=== PATIENT | female | born 1955 | race Caucasian/White ===

== ENCOUNTER 2016-12-15 11:07 | Inpatient (IN) | payer OTHER ==
[2016-12-15 11:45] VITALS: BMI 38.2
--- NOTE | 2016-12-15 15:36 | HP ---
COWS - Scale Resting Pulse: 1= MO 81-100 Sweatin=Flushed/Facial Moisture Restless Observation: 3= Extraneous Movement Pupil Size: 2= Moderately Dilated Bone or Joint Aches: 2= Severe Diffuse Aches Runny Nose/ Eye Tearin= Runny Nose/Eyes GI Upset > 30mins: 2= Nausea/Diarrhea Tremor Observation: 2= Slight Tremor Visible Yawning Observation: 1= 1-2x During Session Anxiety or Irritability: 2=Irritable/Anxious Goose Flesh Skin: 3=Piloerection COWS Score: 22 Admission ROS S - HPI Chief Complaint: Withdrawal sx Allergies/Adverse Reactions: Allergies Allergy/AdvReac Type Severity Reaction Status Date / Time No Known Allergies Allergy Unverified 12/15/16 14:20 History of Present Illness: 61 y/o woman with a long hx. of drug dependence is admitted for detox.Pt. was in [facility] for 20 yrs., she recently detoxed. Exam Limitations: No Limitations - Ebola screening Have you traveled outside of the country in the last 21 days: No Have you had contact with anyone from an Ebola affected area: No Have you been sick,other than usual withdrawal symptoms: No Do you have a fever: No - Review of Systems Constitutional: Diaphoresis EENT: reports: Nose Congestion Respiratory: reports: Shortness of Breath (copd) Cardiac: reports: No Symptoms Reported GI: reports: Nausea, Abdominal cramping : reports: No Symptoms Reported Musculoskeletal: reports: Back Pain, Joint Pain, Muscle Pain Integumentary: reports: Sweating Neuro: reports: Tremors Endocrine: reports: No Symptoms Reported Hematology: reports: No Symptoms Reported Psychiatric: reports: No Sypmtoms Reported Other Systems: Reviewed and Negative Patient History - Patient Medical History Hx Anemia: No Hx Asthma: No Hx Chronic Obstructive Pulmonary Disease (COPD): Yes Hx Cancer: No Hx Cardiac Disorders: No Hx Congestive Heart Failure: No Hx Hypertension: Yes Hx Hypercholesterolemia: Yes Hx Pacemaker: No HX Cerebrovascular Accident: No Hx Seizures: No Hx Dementia: No Hx Diabetes: No Hx Gastrointestinal Disorders: No Hx Liver Disease: No Hx Genitourinary Disorders: No Hx Sexually Transmitted Disorders: No Hx Renal Disease (ESRD): No Hx Thyroid Disease: No Hx Human Immunodeficiency Virus (HIV): No Hx Hepatitis C: No Hx Depression: Yes Hx Suicide Attempt: No Hx Bipolar Disorder: No Hx Schizophrenia: No - Patient Surgical History Past Surgical History: Yes Hx Orthopedic Surgery: Yes (rt. foot 2014) Other Surgical History: rt. carpal tunnel left hand 2011 Anesthesia Reaction: No - PPD History Previous Implant?: Yes Documented Results: Negative w/o proof Implanted On Prior [facility] Admission?: No Results: 0 mm PPD to be Administered?: Yes - Reproductive History Patient is a Female of Child Bearing Age (11 -55 yrs old): No Patient : No - Smoking Cessation Smoking history: Current every day smoker Have you smoked in the past 12 months: Yes Aproximately how many cigarettes per day: 30 Hx Chewing Tobacco Use: No Initiated information on smoking cessation: Yes 'Breaking Loose' booklet given: 12/15/16 - Substance & Tx. History Hx Alcohol Use: No Hx Substance Use: Yes Substance Use Type: Heroin, Opiates Hx Substance Use Treatment: Yes ([facility]) - Substances Abused Heroin Route: Inhalation Frequency: Daily Amount used: 5 bags Age of first use: 32 Date of Last Use: 12/15/16 Family Disease History - Family Disease History Family Disease History: Heart Disease: Father (HTN), Mother (HTN), Brother (HTN) Admission Physical Exam S - Vital Signs Vital Signs: Vital Signs - 24 hr 12/15/16 11:43 Temperature 97.5 F L Pulse Rate 91 H Respiratory 18 Rate Blood Pressure 121/105 - Physical General Appearance: Yes: Obese, Sweating, Anxious HEENTM: Yes: Nasal Congestion, Rhinorrhea Respiratory: Yes: Chest Non-Tender, Lungs Clear, Normal Breath Sounds Neck: Yes: Supple Breast: Yes: Breast Exam Deferred Cardiology: Yes: Regular Rhythm, Regular Rate, S1, S2 Abdominal: Yes: Normal Bowel Sounds, Non Tender, Soft Genitourinary: Yes: Within Normal Limits Back: Yes: Within Normal Limits Musculoskeletal: Yes: Within Normal Limits Extremities: Yes: Tremors Neurological: Yes: Fully Oriented, Alert Integumentary: Yes: Diaphoresis Lymphatic: Yes: Within Normal Limits - Diagnostic (1) COPD (chronic obstructive pulmonary disease) Current Visit: Yes Status: Acute Qualifiers: COPD type: emphysema Emphysema type: other Qualified Code(s): J43.8 - Other emphysema (2) GERD (gastroesophageal reflux disease) Current Visit: Yes Status: Acute Qualifiers: Esophagitis presence: without esophagitis Qualified Code(s): K21.9 - Gastro-esophageal reflux disease without esophagitis (3) HTN (hypertension) Current Visit: Yes Status: Acute Qualifiers: Hypertension type: essential hypertension Qualified Code(s): I10 - Essential (primary) hypertension (4) Opioid dependence with withdrawal Current Visit: Yes Status: Acute (5) Obesities, morbid Current Visit: Yes Status: Acute Qualifiers: Obesity type: due to excess calories Qualified Code(s): E66.01 - Morbid (severe) obesity due to excess calories Cleared for Admission [facility] - Detox or Rehab [facility] Level of Care: Medically Managed Detox Regimen/Protocol: Methadone [facility] Breath Alcohol Content Breath Alcohol Content: 0 Urine Pregancy Test - Result Urine Test Results: Negative- NO Line Present Urine Drug Screen - Results Drug Screen Negative: No Urine Drug Screen Results: OPI-Opiates, MTD-Methadone, TCA-Tricyclic Antidepress , OXY-Oxycodone
[2016-12-15] MEDS ORDERED: IBUPROFEN 400 MG TABLET (FP) PO PRN (15:40)
[2016-12-15] MEDS ORDERED: LOPERAMIDE HCL 2 MG CAPSULE PO PRN (15:40)
[2016-12-15] MEDS ORDERED: MAG HYDROX/AL HYDROX/SIMETH 30 ML UNIT-DOSE CUP PO PRN (15:40)
[2016-12-15] MEDS ORDERED: diphenhydrAMINE HCL 50 MG CAPSULE PO PRN (15:40)
[2016-12-15] MEDS ORDERED: MENTHOL/PHENOL 1 EACH UD MM PRN (15:40)
[2016-12-15] MEDS ORDERED: P-EPHED 60MG/TRIPROLIDI 2.5MG TABLET PO PRN (15:40)
[2016-12-15] MEDS ORDERED: METHADONE HCL 10 MG TABLET (FOR DETOX USE ONLY) PO ONE ×2 (15:40→23:00)
[2016-12-15] MEDS ORDERED: MAGNESIUM CITRATE 300 ML BOTTLE PO PRN (15:40)
[2016-12-15] MEDS ORDERED: guaiFENesin/D-METHORPHAN HB 10 ML UNIT-DOSE CUPS PO PRN (15:40)
[2016-12-15] MEDS ORDERED: ACETAMINOPHEN 325 MG TABLET (FP) PO PRN (15:40)
[2016-12-15] MEDS ORDERED: ALBUTEROL SO4 6.7 GM HFA INHALER IH PRN (15:45)
[2016-12-15] MEDS: ASPIRIN 81 MG CHEWABLE TABLETS PO SCH (16:43)
[2016-12-15] MEDS: NICOTINE 21 MG/24 HOURS TOPICAL PATCH TD SCH (16:44)
[2016-12-15] MEDS: PANTOPRAZOLE 40 MG TABLET (FP) PO SCH (16:44)
[2016-12-15] MEDS: ENALAPRIL MALEATE 5 MG TABLET (FP) PO SCH (16:45)
[2016-12-15] MEDS: diazePAM 5 MG TABLET PO PRN ×2 (16:45→22:21)
[2016-12-15] MEDS: NICOTINE POLACRILEX 4 MG GUM BC PRN ×2 (19:23→22:24)
[2016-12-15 20:04] LABS: URINE APPEARANCE CLEAR; URINE BILIRUBIN NEGATIVE (NEGATIVE); URINE BLOOD NEGATIVE (NEGATIVE); URINE COLOR LTYELLOW; URINE GLUCOSE (UA) NEGATIVE (NEGATIVE); URINE KETONE NEGATIVE (NEGATIVE); URINE LEUK ESTERASE NEGATIVE (NEGATIVE); URINE NITRITE NEGATIVE (NEGATIVE); URINE PROTEIN NEGATIVE (NEGATIVE); URINE UROBILINOGEN NEGATIVE E.U./dl (0.2-1.0)
[2016-12-15] MEDS: GABAPENTIN 300 MG CAPSULE (FP) PO SCH (22:21)
[2016-12-15] MEDS: ATORVASTATIN CA 20 MG TABLET (FP) PO SCH (22:21)
[2016-12-15] MEDS: ACLIDINIUM BROMIDE 400 MCG/INH AERO.POWD IH SCH (22:21)
[2016-12-15] MEDS: THIAMINE HCL 100 MG TABLET (FP) PO SCH (22:21)
[2016-12-16] MEDS: diazePAM 5 MG TABLET PO PRN ×3 (03:34→22:29)
--- NOTE | 2016-12-16 09:04 | CONSULT ---
[facility] Psychiatric Consult - Data Date of interview: 12/16/16 Admission source: [facility] Identifying data: This is 61 years opld female with nop psycbhiatric hospitalization history [id number] with : Opioids and Nicotine Substance Abuse History: - Smoking Cessation. Smoking history: Current every day smoker. Have you smoked in the past 12 months: Yes. Aproximately how many cigarettes per day: 30. Hx Chewing Tobacco Use: No. Initiated information on smoking cessation: Yes. 'Breaking Loose' booklet given: 12/15/16. - Substance & Tx. History. Hx Alcohol Use: No. Hx Substance Use: Yes. Substance Use Type : Heroin, Opiates. Hx Substance Use Treatment: Yes (OTP). - Substances Abused. Heroin. Route: Inhalation. Frequency: Daily. Amount used: 5 bags. Age of first use: 32. Date of Last Use: 12/15/16 Medical History: COPD, GERD, htn, Obesity Psychiatric History: Patient reprotsd history of anxiety and insomnia,m reports taking prior to admission: Ambien 10mg po qhs. Gabapentin 300mg p qhs Physical/Sexual Abuse/Trauma History: Denies Additional Comment: Ambien 10mg po qhs. Gabapentin 300mg p qhs Mental Status Exam - Mental Status Exam Alert and Oriented to: Person Cognitive Function: Fair Patient Appearance: Unkempt Mood: Sad Affect: Flat Patient Behavior: Sedated Speech Pattern: Delayed Voice Loudness: Mildly Soft/Quiet Thought Process: Circumstantial Thought Disorder: Being Controlled Hallucinations: Denies Suicidal Ideation: Denies Homicidal Ideation: Denies Insight/Judgement: Fair Sleep: Difficulty falling asleep Appetite: Weight gain Muscle strength/Tone: Mild Hypotonicity Gait/Station: Shuffling Additional Comments: Ambien 10mg po qhs. Gabapentin 300mg p qhs Psychiatric Findings - Problem List ([place] 1, 2,3) (1) Opioid dependence with withdrawal Current Visit: Yes Status: Acute (2) Nicotine dependence Current Visit: Yes Status: Acute (3) Drug-induced mood disorder Current Visit: Yes Status: Acute - Initial Treatment Plan Initial Treatment Plan: Ambien 10mg po qhs. Gabapentin 300mg p qhs
[2016-12-16] MEDS ORDERED: METHADONE HCL 10 MG TABLET (FOR DETOX USE ONLY) PO ONE (10:00)
[2016-12-16 10:06] LABS: MCH 28.3 pg (25.7-33.7); MCHC 31.6 g/dl (32.0-36.0); MEAN CELL VOLUME 89.5 fl (80-96); MEAN PLT VOLUME 9.9 fl (7.5-11.1); PLATELET COUNT 142 K/MM3 (134-434); RDW 15.7 % (11.6-15.6); WHITE BLOOD COUNT 8.4 K/mm3 (4.0-10.0)
[2016-12-16 10:41] LABS: ALBUMIN 3.6 g/dl (3.4-5.0); BILIRUBIN,TOTAL 0.4 mg/dL (0.2-1.0); CALCIUM 8.9 mg/dL (8.5-10.1); COCKROFT - GAULT 85.17; CREATININE 1.1 mg/dL (0.55-1.02); TOT PROT 6.7 g/dl (6.4-8.2)
[2016-12-16] MEDS: PANTOPRAZOLE 40 MG TABLET (FP) PO SCH (10:46)
[2016-12-16] MEDS: PRENATAL VITAMINS W/ FOLIC ACID TABLET (FP) PO SCH (10:46)
[2016-12-16] MEDS: ASPIRIN 81 MG CHEWABLE TABLETS PO SCH (10:46)
[2016-12-16] MEDS: NICOTINE 21 MG/24 HOURS TOPICAL PATCH TD SCH (10:47)
--- NOTE | 2016-12-16 11:33 | EKG ---
Test Reason : Blood Pressure : / mmHG Vent. Rate : 071 BPM Atrial Rate : 071 BPM P-R Int : 172 ms QRS Dur : 082 ms QT Int : 378 ms P-R-T Axes : 070 030 046 degrees QTc Int : 410 ms NORMAL SINUS RHYTHM NORMAL ECG NO PREVIOUS ECGS AVAILABLE Confirmed by DEISY RIVER MD ([id number]) on 12/16/2016 11:33:00 AM Referred By: Confirmed By:DEISY RIVER MD
--- NOTE | 2016-12-16 12:17 | PN ---
S COWS - Scale Resting Pulse: 1= RI 81-100 Sweatin=Flushed/Facial Moisture Restless Observation: 1= Difficult to Sit Still Pupil Size: 1= Pupils >than Normal Bone or Joint Aches: 2= Severe Diffuse Aches Runny Nose/ Eye Tearin= Nasal Congestion GI Upset > 30mins: 1= Stomach Cramp Tremor Observation of Outstretched Hands: 1= Tremor [place], Not Seen Yawning Observation: 0= None Anxiety or Irritability: 2=Irritable/Anxious Goose Flesh Skin: 0=Smooth Skin COWS Score: 12 S Progress Note (SOAP) Subjective: interrupted sleep, sweats achy Objective: 12/16/16 12:15 Vital Signs Temperature 98.2 F 12/16/16 09:51 Pulse Rate 79 12/16/16 09:51 Respiratory Rate 16 12/16/16 09:51 Blood Pressure 108/69 12/16/16 09:51 O2 Sat by Pulse Oximetry (%) Laboratory Tests 12/15/16 12/16/16 12/16/16 19:53 08:00 08:00 WBC 8.4 RBC 5.43 H Hgb 15.4 H Hct 48.6 H MCV 89.5 MCHC 31.6 L RDW 15.7 H Plt Count 142 D MPV 9.9 Sodium 143 Potassium 4.2 Chloride 103 Carbon Dioxide 28 Anion Gap 12 BUN 20 H Creatinine 1.1 H Creat Clearance w eGFR 50.84 Random Glucose 100 D Calcium 8.9 Total Bilirubin 0.4 AST 14 L ALT 28 D Alkaline Phosphatase 110 Total Protein 6.7 Albumin 3.6 Urine Color Ltyellow Urine Appearance Clear Urine pH 6.0 Ur Specific [place] 1.014 Urine Protein Negative Urine Glucose (UA) Negative Urine Ketones Negative Urine Blood Negative Urine Nitrite Negative Urine Bilirubin Negative Urine Urobilinogen Negative Ur Leukocyte Esterase Negative RPR Titer 12/16/16 08:00 WBC RBC Hgb Hct MCV MCHC RDW Plt Count MPV Sodium Potassium Chloride Carbon Dioxide Anion Gap BUN Creatinine Creat Clearance w eGFR Random Glucose Calcium Total Bilirubin AST ALT Alkaline Phosphatase Total Protein Albumin Urine Color Urine Appearance Urine pH Ur Specific [place] Urine Protein Urine Glucose (UA) Urine Ketones Urine Blood Urine Nitrite Urine Bilirubin Urine Urobilinogen Ur Leukocyte Esterase RPR Titer Nonreactive pt aox3 in nad ambulating Assessment: 04/10/17 12:16 withdrawal sx's Plan: cont, detox increase fluids
[2016-12-16] MEDS: ENALAPRIL MALEATE 5 MG TABLET (FP) PO SCH (12:19)
[2016-12-16] MEDS: ACLIDINIUM BROMIDE 400 MCG/INH AERO.POWD IH SCH ×2 (12:19→22:30)
[2016-12-16] MEDS ORDERED: GABAPENTIN 300 MG CAPSULE (FP) PO SCH (22:00)
[2016-12-16] MEDS: THIAMINE HCL 100 MG TABLET (FP) PO SCH (22:29)
[2016-12-16] MEDS: GABAPENTIN 300 MG CAPSULE (FP) PO SCH (22:29)
[2016-12-16] MEDS: ATORVASTATIN CA 20 MG TABLET (FP) PO SCH (22:29)
[2016-12-16] MEDS: ZOLPIDEM TARTRATE 10 MG TABLET (PARK CARE ONLY) PO PRN (22:29)
[2016-12-17] MEDS ORDERED: METHADONE HCL 5 MG TABLET (FOR DETOX USE ONLY) PO ONE (10:00)
[2016-12-17] MEDS: ASPIRIN 81 MG CHEWABLE TABLETS PO SCH (10:39)
[2016-12-17] MEDS: NICOTINE 21 MG/24 HOURS TOPICAL PATCH TD SCH (10:39)
[2016-12-17] MEDS: PRENATAL VITAMINS W/ FOLIC ACID TABLET (FP) PO SCH (10:39)
[2016-12-17] MEDS: MAGNESIUM HYDROX 2400MG/30ML ORAL SUSPENSION 30 ML CUP PO PRN (10:40)
[2016-12-17] MEDS: PANTOPRAZOLE 40 MG TABLET (FP) PO SCH (10:40)
[2016-12-17] MEDS: ACLIDINIUM BROMIDE 400 MCG/INH AERO.POWD IH SCH ×2 (10:40→22:09)
[2016-12-17] MEDS: ENALAPRIL MALEATE 5 MG TABLET (FP) PO SCH (10:40)
--- NOTE | 2016-12-17 11:03 | PN ---
S CIWA - CIWA Score Nausea/Vomitin Muscle Tremors: 2 BHS COWS - Scale Resting Pulse: 1= SD 81-100 Sweatin= Chills/Flushing Restless Observation: 1= Difficult to Sit Still Pupil Size: 1= Pupils >than Normal Bone or Joint Aches: 1= Mild Discomfort Runny Nose/ Eye Tearin= Nasal Congestion GI Upset > 30mins: 1= Stomach Cramp Tremor Observation of Outstretched Hands: 1= Tremor [place], Not Seen Yawning Observation: 0= None Anxiety or Irritability: 2=Irritable/Anxious Goose Flesh Skin: 0=Smooth Skin COWS Score: 10 BHS Progress Note (SOAP) Subjective: interrupted sleep , sweats ,constipation , cerrumen left ear Objective: 12/17/16 11:02 Vital Signs Temperature 97.7 F 12/17/16 09:56 Pulse Rate 89 12/17/16 09:56 Respiratory Rate 16 12/17/16 09:56 Blood Pressure 134/79 12/17/16 09:56 O2 Sat by Pulse Oximetry (%) Laboratory Tests 12/15/16 12/16/16 12/16/16 19:53 08:00 08:00 WBC 8.4 RBC 5.43 H Hgb 15.4 H Hct 48.6 H MCV 89.5 MCHC 31.6 L RDW 15.7 H Plt Count 142 D MPV 9.9 Sodium 143 Potassium 4.2 Chloride 103 Carbon Dioxide 28 Anion Gap 12 BUN 20 H Creatinine 1.1 H Creat Clearance w eGFR 50.84 Random Glucose 100 D Calcium 8.9 Total Bilirubin 0.4 AST 14 L ALT 28 D Alkaline Phosphatase 110 Total Protein 6.7 Albumin 3.6 Urine Color Ltyellow Urine Appearance Clear Urine pH 6.0 Ur Specific [place] 1.014 Urine Protein Negative Urine Glucose (UA) Negative Urine Ketones Negative Urine Blood Negative Urine Nitrite Negative Urine Bilirubin Negative Urine Urobilinogen Negative Ur Leukocyte Esterase Negative RPR Titer 12/16/16 08:00 WBC RBC Hgb Hct MCV MCHC RDW Plt Count MPV Sodium Potassium Chloride Carbon Dioxide Anion Gap BUN Creatinine Creat Clearance w eGFR Random Glucose Calcium Total Bilirubin AST ALT Alkaline Phosphatase Total Protein Albumin Urine Color Urine Appearance Urine pH Ur Specific [place] Urine Protein Urine Glucose (UA) Urine Ketones Urine Blood Urine Nitrite Urine Bilirubin Urine Urobilinogen Ur Leukocyte Esterase RPR Titer Nonreactive pt aox3 in nad lying in bed Assessment: 12/17/16 11:02 withdrawal sx's cerrumen constipation Plan: cont. detox increase fluids debrox mom
[2016-12-17] MEDS: diazePAM 5 MG TABLET PO PRN ×3 (11:26→22:10)
[2016-12-17] MEDS: NICOTINE POLACRILEX 4 MG GUM BC PRN (11:26)
[2016-12-17] MEDS: CARBAMIDE PEROXIDE 6.5% OTIC 15 ML BOTTLE AU SCH (22:09)
[2016-12-17] MEDS: THIAMINE HCL 100 MG TABLET (FP) PO SCH (22:10)
[2016-12-17] MEDS: ZOLPIDEM TARTRATE 10 MG TABLET (PARK CARE ONLY) PO PRN (22:10)
[2016-12-17] MEDS: GABAPENTIN 300 MG CAPSULE (FP) PO SCH (22:10)
[2016-12-17] MEDS: ATORVASTATIN CA 20 MG TABLET (FP) PO SCH (22:10)
[2016-12-17] MEDS: IBUPROFEN 400 MG TABLET (FP) PO PRN (22:14)
[2016-12-18] MEDS: diazePAM 5 MG TABLET PO PRN ×3 (04:45→15:16)
[2016-12-18] MEDS ORDERED: ONDANSETRON *ODT* 4 MG TABLET SL PRN (09:45)
[2016-12-18] MEDS ORDERED: METHADONE HCL 5 MG TABLET (FOR DETOX USE ONLY) PO ONE (10:00)
[2016-12-18] MEDS: CYCLOBENZAPRINE HCL 10 MG TABLET (FP) PO PRN ×2 (10:42→22:24)
[2016-12-18] MEDS: PANTOPRAZOLE 40 MG TABLET (FP) PO SCH (10:42)
[2016-12-18] MEDS: ASPIRIN 81 MG CHEWABLE TABLETS PO SCH (10:42)
[2016-12-18] MEDS: PRENATAL VITAMINS W/ FOLIC ACID TABLET (FP) PO SCH (10:42)
[2016-12-18] MEDS: ACLIDINIUM BROMIDE 400 MCG/INH AERO.POWD IH SCH ×2 (10:42→22:24)
[2016-12-18] MEDS: NICOTINE 21 MG/24 HOURS TOPICAL PATCH TD SCH (10:43)
[2016-12-18] MEDS: ENALAPRIL MALEATE 5 MG TABLET (FP) PO SCH (10:43)
[2016-12-18] MEDS: CARBAMIDE PEROXIDE 6.5% OTIC 15 ML BOTTLE AU SCH (10:44)
[2016-12-18] MEDS: NICOTINE POLACRILEX 4 MG GUM BC PRN ×2 (10:48→13:26)
--- NOTE | 2016-12-18 13:43 | PN ---
BHS Progress Note (SOAP) Subjective: interrupted sleep, sweats, shakes , headache , leg pains , nausea Objective: 12/18/16 13:41 Vital Signs Temperature 98.1 F 12/18/16 10:56 Pulse Rate 76 12/18/16 10:56 Respiratory Rate 16 12/18/16 10:56 Blood Pressure 150/91 12/18/16 10:56 O2 Sat by Pulse Oximetry (%) pt aox3 lying in bed in nad Assessment: 12/18/16 13:42 withdrawal sx's Plan: cont. detox increase fluids zofran flexeril prn motrin prn
[2016-12-18] MEDS: THIAMINE HCL 100 MG TABLET (FP) PO SCH (22:23)
[2016-12-18] MEDS: GABAPENTIN 300 MG CAPSULE (FP) PO SCH (22:24)
[2016-12-18] MEDS: ZOLPIDEM TARTRATE 10 MG TABLET (PARK CARE ONLY) PO PRN (22:24)
[2016-12-18] MEDS: ATORVASTATIN CA 20 MG TABLET (FP) PO SCH (22:24)
[2016-12-19] MEDS: hydrOXYzine PAMOATE 50 MG CAPSULE (FP) PO PRN (05:23)
[2016-12-19] MEDS ORDERED: METHADONE HCL 10 MG TABLET (FOR DETOX USE ONLY) PO ONE (10:00)
--- NOTE | 2016-12-19 10:44 | PN ---
BHS Progress Note (SOAP) Subjective: interrupted sleep, sweats, constipation Objective: 12/19/16 10:43 Vital Signs Temperature 98.1 F 12/19/16 10:18 Pulse Rate 83 12/19/16 10:18 Respiratory Rate 18 12/19/16 10:18 Blood Pressure 126/72 12/19/16 10:18 O2 Sat by Pulse Oximetry (%) Laboratory Tests 12/15/16 12/16/16 12/16/16 19:53 08:00 08:00 WBC 8.4 RBC 5.43 H Hgb 15.4 H Hct 48.6 H MCV 89.5 MCHC 31.6 L RDW 15.7 H Plt Count 142 D MPV 9.9 Sodium 143 Potassium 4.2 Chloride 103 Carbon Dioxide 28 Anion Gap 12 BUN 20 H Creatinine 1.1 H Creat Clearance w eGFR 50.84 Random Glucose 100 D Calcium 8.9 Total Bilirubin 0.4 AST 14 L ALT 28 D Alkaline Phosphatase 110 Total Protein 6.7 Albumin 3.6 Urine Color Ltyellow Urine Appearance Clear Urine pH 6.0 Ur Specific [place] 1.014 Urine Protein Negative Urine Glucose (UA) Negative Urine Ketones Negative Urine Blood Negative Urine Nitrite Negative Urine Bilirubin Negative Urine Urobilinogen Negative Ur Leukocyte Esterase Negative RPR Titer 12/16/16 08:00 WBC RBC Hgb Hct MCV MCHC RDW Plt Count MPV Sodium Potassium Chloride Carbon Dioxide Anion Gap BUN Creatinine Creat Clearance w eGFR Random Glucose Calcium Total Bilirubin AST ALT Alkaline Phosphatase Total Protein Albumin Urine Color Urine Appearance Urine pH Ur Specific [place] Urine Protein Urine Glucose (UA) Urine Ketones Urine Blood Urine Nitrite Urine Bilirubin Urine Urobilinogen Ur Leukocyte Esterase RPR Titer Nonreactive pt lying in bed, in nad Assessment: 12/19/16 10:44 withdrawal sx Plan: cont. detox increase fluids d/c in am
[2016-12-19] MEDS: ASPIRIN 81 MG CHEWABLE TABLETS PO SCH (10:45)
[2016-12-19] MEDS: NICOTINE 21 MG/24 HOURS TOPICAL PATCH TD SCH (10:46)
[2016-12-19] MEDS: ACLIDINIUM BROMIDE 400 MCG/INH AERO.POWD IH SCH ×2 (10:46→22:17)
[2016-12-19] MEDS: ENALAPRIL MALEATE 5 MG TABLET (FP) PO SCH (10:46)
[2016-12-19] MEDS: PRENATAL VITAMINS W/ FOLIC ACID TABLET (FP) PO SCH (10:46)
[2016-12-19] MEDS: PANTOPRAZOLE 40 MG TABLET (FP) PO SCH (10:46)
[2016-12-19] MEDS: CYCLOBENZAPRINE HCL 10 MG TABLET (FP) PO PRN ×2 (10:46→22:18)
[2016-12-19] MEDS: NICOTINE POLACRILEX 4 MG GUM BC PRN (10:47)
[2016-12-19] MEDS: MAGNESIUM HYDROX 2400MG/30ML ORAL SUSPENSION 30 ML CUP PO PRN (10:48)
[2016-12-19] MEDS: IBUPROFEN 400 MG TABLET (FP) PO PRN ×2 (14:37→22:18)
[2016-12-19] MEDS: CARBAMIDE PEROXIDE 6.5% OTIC 15 ML BOTTLE AU SCH ×3 (17:08→23:10)
[2016-12-19] MEDS ORDERED: LIDOCAINE 5% TOPICAL PATCH TP ONE (18:00)
[2016-12-19] MEDS: ATORVASTATIN CA 20 MG TABLET (FP) PO SCH (22:18)
[2016-12-19] MEDS: THIAMINE HCL 100 MG TABLET (FP) PO SCH (22:18)
[2016-12-19] MEDS: ZOLPIDEM TARTRATE 10 MG TABLET (PARK CARE ONLY) PO PRN (22:19)
[2016-12-19] MEDS: GABAPENTIN 300 MG CAPSULE (FP) PO SCH (22:19)
[2016-12-20] MEDS: hydrOXYzine PAMOATE 50 MG CAPSULE (FP) PO PRN ×2 (03:14→06:27)
[2016-12-20] MEDS: CYCLOBENZAPRINE HCL 10 MG TABLET (FP) PO PRN (05:42)
[2016-12-20] MEDS ORDERED: METHADONE HCL 5 MG TABLET (FOR DETOX USE ONLY) PO ONE (06:00)
[2016-12-20] MEDS: CARBAMIDE PEROXIDE 6.5% OTIC 15 ML BOTTLE AU SCH (09:15)
[2016-12-20] MEDS: ACLIDINIUM BROMIDE 400 MCG/INH AERO.POWD IH SCH (09:15)
[2016-12-20] MEDS: ENALAPRIL MALEATE 5 MG TABLET (FP) PO SCH (09:16)
[2016-12-20] MEDS: ASPIRIN 81 MG CHEWABLE TABLETS PO SCH (09:16)
[2016-12-20] MEDS: PANTOPRAZOLE 40 MG TABLET (FP) PO SCH (09:16)
[2016-12-20] MEDS ORDERED: LIDOCAINE 5% TOPICAL PATCH TP SCH (10:00)
[2016-12-20 11:27] VITALS: BP 116/78; PULSE 91; TEMP 98.6
--- NOTE | 2016-12-20 12:31 | DS ---
[facility] Detox Discharge Summary Admission Date: 12/15/16 Discharge Date: 12/20/16 - History Present History: Opioid Dependence Additional Comments: ADVISED PATIENT TO FOLLOW-UP WITH [facility] / REHAB MEDICAL PROVIDER AFTER DISCHARGE FROM DETOX FOR ABNORMAL LAB VALUES. Pertinent Past History: COPD, GERD, HTN , Depression, Hypercholesterolemia. - Physical Exam Results Vital Signs: Vital Signs Temperature 98.6 F 12/20/16 11:27 Pulse Rate 91 H 12/20/16 11:27 Respiratory Rate 20 12/20/16 11:27 Blood Pressure 116/78 12/20/16 11:27 O2 Sat by Pulse Oximetry (%) Pertinent Admission Physical Exam Findings: WITHDRAWAL SYMPTOMS. Laboratory Last Values WBC 8.4 K/mm3 (4.0-10.0) 12/16/16 08:00 RBC 5.43 M/mm3 (3.60-5.2) H 12/16/16 08:00 Hgb 15.4 GM/dL (10.7-15.3) H 12/16/16 08:00 Hct 48.6 % (32.4-45.2) H 12/16/16 08:00 MCV 89.5 fl (80-96) 12/16/16 08:00 MCHC 31.6 g/dl (32.0-36.0) L 12/16/16 08:00 RDW 15.7 % (11.6-15.6) H 12/16/16 08:00 Plt Count 142 K/MM3 (134-434) D 12/16/16 08:00 MPV 9.9 fl (7.5-11.1) 12/16/16 08:00 Sodium 143 mmol/L (136-145) 12/16/16 08:00 Potassium 4.2 mmol/L (3.5-5.1) 12/16/16 08:00 Chloride 103 mmol/L (98-107) 12/16/16 08:00 Carbon Dioxide 28 mmol/L (21-32) 12/16/16 08:00 Anion Gap 12 (8-16) 12/16/16 08:00 BUN 20 mg/dL (7-18) H 12/16/16 08:00 Creatinine 1.1 mg/dL (0.55-1.02) H 12/16/16 08:00 Creat Clearance w eGFR 50.84 (>60) 12/16/16 08:00 Random Glucose 100 mg/dL (74-106) D 12/16/16 08:00 Calcium 8.9 mg/dL (8.5-10.1) 12/16/16 08:00 Total Bilirubin 0.4 mg/dL (0.2-1.0) 12/16/16 08:00 AST 14 U/L (15-37) L 12/16/16 08:00 ALT 28 U/L (12-78) D 12/16/16 08:00 Alkaline Phosphatase 110 U/L (45-117) 12/16/16 08:00 Total Protein 6.7 g/dl (6.4-8.2) 12/16/16 08:00 Albumin 3.6 g/dl (3.4-5.0) 12/16/16 08:00 Urine Color Ltyellow 12/15/16 19:53 Urine Appearance Clear 12/15/16 19:53 Urine pH 6.0 (5.0-8.0) 12/15/16 19:53 Ur Specific [place] 1.014 (1.001-1.035) 12/15/16 19:53 Urine Protein Negative (NEGATIVE) 12/15/16 19:53 Urine Glucose (UA) Negative (NEGATIVE) 12/15/16 19:53 Urine Ketones Negative (NEGATIVE) 12/15/16 19:53 Urine Blood Negative (NEGATIVE) 12/15/16 19:53 Urine Nitrite Negative (NEGATIVE) 12/15/16 19:53 Urine Bilirubin Negative (NEGATIVE) 12/15/16 19:53 Urine Urobilinogen Negative E.U./dl (0.2-1.0) 12/15/16 19:53 Ur Leukocyte Esterase Negative (NEGATIVE) 12/15/16 19:53 RPR Titer Nonreactive (NONREACTIVE) 12/16/16 08:00 LABS NOTED. - Treatment Hospital Course: Detox Protocol Followed, Detoxed Safely, Responded well, Discharged Condition Good Patient has Accepted a Rehab Referral to: NO - PT. EELECTING TO GO HOME AT THIS TIME; NA/12-STEP PROGRAMS RECOMMENDED - Medication Discharge Medications: Ambulatory Orders Albuterol Sulfate Inhaler - [Ventolin Hfa Inhaler -] 1 - 2 inh PO Q4H 12/15/16 Aspirin [ASA -] 81 mg PO DAILY 12/15/16 Atorvastatin Ca [Lipitor] 20 mg PO HS 12/15/16 Enalapril Maleate [Vasotec -] 5 mg PO DAILY 12/15/16 Gabapentin [Neurontin] 300 mg PO HS 12/15/16 Omeprazole 40 mg PO BID 12/15/16 Tiotropium [place] [Spiriva] 18 mcg IH DAILY 12/15/16 Gabapentin [Neurontin -] 300 mg PO HS #30 tablet 12/16/16 - Diagnosis (1) COPD (chronic obstructive pulmonary disease) Status: Acute Qualifiers: COPD type: emphysema Emphysema type: other Qualified Code(s): J43.8 - Other emphysema (2) Drug-induced mood disorder Status: Acute (3) GERD (gastroesophageal reflux disease) Status: Chronic Qualifiers: Esophagitis presence: without esophagitis Qualified Code(s): K21.9 - Gastro-esophageal reflux disease without esophagitis (4) HTN (hypertension) Status: Chronic Qualifiers: Hypertension type: essential hypertension Qualified Code(s): I10 - Essential (primary) hypertension (5) Nicotine dependence Status: Acute Qualifiers: Nicotine product type: cigarettes Substance use status: uncomplicated Qualified Code(s): F17.210 - Nicotine dependence, cigarettes, uncomplicated (6) Obesities, morbid Status: Chronic Qualifiers: Obesity type: due to excess calories Qualified Code(s): E66.01 - Morbid (severe) obesity due to excess calories (7) Opioid dependence with withdrawal Status: Acute - AMA Did Patient Leave Against Medical Advice: No
== END 2016-12-20 09:18 | disposition home or self-care (01) | DRG 773 ==
LOC: YASAS 11:07 → Y6N 14:49
PROVIDERS: ADMIT Internal Medicine; ATTEND Internal Medicine Addiction Medicine
PROC: HZ2ZZZZ Detoxification Services for Substance Abuse Treatment (ICD-10-PCS; principal; 2016-12-20)
DX: F11.23 Opioid dependence with withdrawal (principal); F17.213 Nicotine dependence, cigarettes, with withdrawal; F19.24 Other psychoactive substance dependence with psychoactive substance-induced mood disorder; K21.9 Gastro-esophageal reflux disease without esophagitis; E66.01 Morbid (severe) obesity due to excess calories; Z68.38 Body mass index [BMI] 38.0-38.9, adult
CPT/HCPCS: 36415; 80053; 81003; 85027; 86593; 93005; 93010

== ENCOUNTER 2017-08-20 12:45 | Emergency (ER) | payer OTHER ==
[2017-08-20 13:24] VITALS: BMI 38.4
--- NOTE | 2017-08-20 13:54 | PDOC ---
History of Present Illness - General Chief Complaint: Pain, Acute Stated Complaint: LEG PAIN Time Seen by Provider: 08/20/17 12:53 History Source: Patient Exam Limitations: No Limitations - History of Present Illness Initial Comments: This is a 61 YOF with h/o prior opiate addiction (previously has been tx with methadone, suboxone), anxiety (on gabapentin), insomnia (on ambien), HTN (on enalapril), COPD (on albuterol and Spiriva) and osteoarthritis who is POD #8 from left knee replacement (by Dr. Ralph at [facility]), also with recent left toe surgery about 3 weeks ago. She presents with LLE pain worsening from her prior post-op baseline since yesterday, progressive since yesterday, now up to 06/17 and radiating from the knee to the foot. She additionally has warmth and swelling to the entire lower leg which is new since yesterday. She had been taking Dilaudid 4 mg tablets since her surgery (her daughter states up to 16 mg at a time) but she ran out of these yesterday. She has since not been taking any medication for the pain. She has been occasionally elevating and icing the knee, but has not used compression. She was no more active yesterday or today than the previous several days. She has been working with PT daily but was not able to participate in her appointment today. She denies any fever, chills, nausea, vomiting, headache, dizziness/lightheadedness, SOB, cough, hemoptysis, chest pain, palpitations, or other symptoms. She does not use any hormone therapy, and has never had known personal or family history of blood clots. Past History - Past Medical History Allergies/Adverse Reactions: Allergies Allergy/AdvReac Type Severity Reaction Status Date / Time No Known Allergies Allergy Unverified 08/20/17 13:30 Home Medications: Ambulatory Orders Albuterol Sulfate Inhaler - [Ventolin Hfa Inhaler -] 1 - 2 inh PO Q4H 12/15/16 Atorvastatin Ca [Lipitor] 20 mg PO HS 12/15/16 Gabapentin [Neurontin] 300 mg PO TID 12/15/16 Omeprazole 40 mg PO BID 12/15/16 Tiotropium [place] [Spiriva] 18 mcg IH DAILY 12/15/16 Aspirin [ASA -] 325 mg PO DAILY 08/20/17 Docusate Sodium [Colace -] 300 mg PO HS 08/20/17 Enalapril Maleate [Vasotec] 20 mg PO DAILY 08/20/17 Hydromorphone [Dilaudid -] 4 mg PO Q4H PRN 08/20/17 Zolpidem Tartrate [Ambien] 10 mg PO HS 08/20/17 Anemia: No Asthma: No Cancer: No Cardiac Disorders: No CVA: No COPD: Yes CHF: No Dementia: No Diabetes: No GI Disorders: No Disorders: No HTN: Yes Hypercholesterolemia: Yes Kidney Stones: No Liver Disease: No Seizures: No Thyroid Disease: No - Surgical History Orthopedic Surgery: Yes (rt. foot 2014) - Reproductive History PID: No - Suicide/Smoking/Psychosocial Hx Smoking History: Current every day smoker Have you smoked in the past 12 months: Yes Number of Cigarettes Smoked Daily: 30 Information on smoking cessation initiated: Yes 'Breaking Loose' booklet given: 12/15/16 Hx Alcohol Use: No Drug/Substance Use Hx: Yes Substance Use Type: Heroin, Opiates Hx Substance Use Treatment: Yes (OTP) Review of Systems - Review of Systems Able to Perform ROS?: Yes Constitutional: No: Chills, Fever, Unexplained wgt Loss HEENTM: No: Nose Congestion, Throat Pain Respiratory: No: Cough, Shortness of Breath Cardiac (ROS): No: Chest Pain, Irregular Heart Rate, Lightheadedness, Palpitations, Syncope ABD/GI: No: Constipated, Diarrhea, Nausea, Vomiting : No: Burning, Dysuria Musculoskeletal: Yes: Joint Pain (left knee), Joint Swelling (left knee), Other (left leg pain). No: Back Pain, Neck Pain Integumentary: No: Bruising, Rash Neurological: No: Headache, Numbness, Tingling, Weakness, Dizziness Endocrine: No: Unexplained Weight Gain, Unexplained Weight Loss *Physical Exam - Vital Signs Last Vital Signs Temp Pulse Resp BP Pulse Ox 97.4 F L 83 20 104/59 92 L 08/20/17 13:10 08/20/17 13:10 08/20/17 13:10 08/20/17 13:10 08/20/17 13:10 - Physical Exam General Appearance: Yes: Nourished, Appropriately Dressed, Mild Distress, Obese , Other (nontoxic-appearing adult female in mild distress, holding LLE straight) HEENT: positive: EOMI, YANIQUE, Normal ENT Inspection, Normal Voice, Hearing Grossly Normal. negative: Scleral Icterus (R), Scleral Icterus (L), Nasal Congestion Neck: positive: Trachea midline, Supple. negative: Tender, Rigid Respiratory/Chest: positive: Lungs Clear, Normal Breath Sounds, Wheezing (low- pitched end expiratory). negative: Respiratory Distress, Crackles, Stridor Cardiovascular: positive: Regular Rhythm, Regular Rate. negative: Murmur Gastrointestinal/Abdominal: positive: Normal Bowel Sounds, Soft. negative: Tender, Organomegaly, Pulsatile Mass, Guarding Musculoskeletal: positive: Normal Inspection. negative: Decreased Range of Motion, Vertebral Tenderness Extremity: positive: Other (LLE with 3+ pitting edema circumferentially from superior knee jointline to ankle, erythema and marked warmth to entire lower leg , erythema, palpable cord and small ecchymosis to medial mid-calf on the left, left foot with pedal edema, DP pulse not palpable beneath edema, moving all digits and ankle on the left). negative: Cyanosis Integumentary: positive: Dry, Warm, Erythema (LLE per extremity section) Neurologic: positive: conventions assistant II-XII NML intact (grossly), Fully Oriented, Alert, Normal Mood/Affect, Normal Response, Motor Strength 5/5 ED Treatment Course - LABORATORY CBC & Chemistry Diagram: 08/20/17 14:40 08/20/17 14:40 Medical Decision Making - Medical Decision Making 61 YOF who is POD#8 from left knee replacement p/w LLE erythema, warmth, swelling, and worsened pain. Ran out of Dilaudid yesterday night, has appointment to f/u with orthopedist for tomorrow. On exam her pulse ox is 92 on RA, blood pressure 105 systolic, mild distress. LLE with marked swelling, also erythema and warmth, palpable cord medial calf. DDX IBNLT cellulitis, septic arthritis, hardware infection, DVT, less likely arterial embolism. Ordered is CBCD, CMP, Mg, Phos, cardiac panel, lactate x2, blood ctx, UA, cx, EKG, CXR, knee XR, duplex LLE. 08/20/17 16:04 Spoke with Eric (Dr. Ralph's medical surgical tech) who states clinic is already closed for the day. No way to get in touch with Dr. Ralph directly right now but it is recommended that the patient have an ED-ED xfer. This would be to [facility] where the patient's surgical team. 08/20/17 17:21 Lactate is negative, WBC 10.1, VBG pH 7.29, PCO2 61.3. Vancomycin 1 GM is ordered. DVT study is negative. Patient in significant pain and oxycodone was ordered. Transfer center is called to initiate transfer proceedings to [facility]. 08/20/17 18:41 Patient has been accepted to [facility] to Dr. Balderas in the ED. Paperwork completed and transfer center is coordinating transfer. *DC/Admit/Observation/Transfer Diagnosis at time of Disposition: Cellulitis Qualifiers: Site of cellulitis: extremity Site of cellulitis of extremity: lower extremity Laterality: left Qualified Code(s): L03.116 - Cellulitis of left lower limb - Discharge Dispostion Disposition: TRANSFER ACUTE CARE/OTHER HOSP Condition at time of disposition: Guarded - Referrals Referrals: Mariangel Lundy [Primary Care Provider] - - Patient Instructions - Post Discharge Activity - Transfer to Acute Care Facility Receiving Facility: [facility]
[2017-08-20] MEDS ORDERED: morphine CARPU-JECT 4 MG/1 ML DISP.SYRIN IVPUSH ONE (15:13)
[2017-08-20] MEDS ORDERED: morphine SULFATE 4 MG/ML VIAL ONE (15:15)
[2017-08-20 15:17] LABS: VENOUS PH 7.29 (7.32-7.42)
[2017-08-20 15:18] LABS: VENOUS BLOOD GAS HCO3 28.4 meq/L (19-25)
[2017-08-20 15:22] LABS: BASOPHIL 0.4 % (0-2.0); EOSINOPHIL 1.9 % (0-4.5); MCH 29.7 pg (25.7-33.7); MCHC 32.6 g/dl (32.0-36.0); MEAN CELL VOLUME 91.2 fl (80-96); MEAN PLT VOLUME 9.3 fl (7.5-11.1); NEUTROPHILS 73.2 % (42.8-82.8); PLATELET COUNT 230 K/MM3 (134-434); WHITE BLOOD COUNT 10.1 K/mm3 (4.0-10.0)
[2017-08-20 15:32] LABS: INR 1.11 (0.82-1.09); PROTHROMBIN TIME (PATIENT) 12.5 SEC (9.98-11.88)
[2017-08-20 15:35] LABS: ACTIVATED PTT 33.9 SECONDS (26.9-34.4)
[2017-08-20 15:53] LABS: ALBUMIN 3.3 g/dl (3.4-5.0); ANION GAP 9 (8-16); CALCIUM 9.1 mg/dL (8.5-10.1); CO2 29 mmol/L (21-32); GLUCOSE,RANDOM 106 mg/dL (74-106); SGOT/AST 12 U/L (15-37)
[2017-08-20 16:00] LABS: ALK PHOS 91 U/L (45-117); BILIRUBIN,TOTAL 0.5 mg/dL (0.2-1.0); CPK 64 IU/L (26-192); SGPT/ALT 20 U/L (12-78); TOT PROT 6.6 g/dl (6.4-8.2); TROPONIN I < 0.02 ng/ml (0.00-0.05)
[2017-08-20 18:00] VITALS: TEMP 99.1
--- NOTE | 2017-08-20 18:08 | PDOC ---
Attending Attestation - Resident Resident Name: Lilliana Rojo - ED Attending Attestation I have performed the following: I have examined & evaluated the patient, The case was reviewed & discussed with the resident, I agree w/resident's findings & plan, Exceptions are as noted - HPI HPI: 08/20/17 18:03 61 F with h/o HTN, COPD, recent L knee TKA (POD #8) at [facility], presenting to ER with 1 day of swelling, redness, and pain to LLE. Pt denies F/C. States that she has had pain in her leg ever since the surgery, but she did not notice any significant redness or swelling until yesterday. - Physicial Exam PE: 08/20/17 18:04 "GENERAL: Awake, alert, and fully oriented, in no acute distress HEAD: No signs of trauma EYES: PERRLA, EOMI, sclera anicteric, conjunctiva clear ENT: Auricles normal inspection, hearing grossly normal, nares patent, oropharynx clear without exudates. Moist mucosa NECK: Nontender, no stepoffs, Normal ROM, supple, no lymphadenopathy, JVD, or masses LUNGS: Breath sounds equal, clear to auscultation bilaterally. No wheezes, and no crackles HEART: Regular rate and rhythm, normal S1 and S2, no murmurs, rubs or gallops ABDOMEN: Soft, nontender, normoactive bowel sounds. No guarding, no rebound. No masses EXTREMITIES: LLE with knee brace in place, surgical incision well healing, erythema extending from ankle to knee without fluctuance, no drainage from wound NEUROLOGICAL: Cranial nerves II through XII intact. 5/5 strength and sensation in all extremities, Normal speech, normal gait SKIN: Warm, Dry, normal turgor, no rashes or lesions noted. " - Medical Decision Making 08/20/17 18:07 61 F with recent L TKA, presenting with wound infection. - labs, cultures - XR - US LLE to r/o DVT - Abx - Transfer to [facility]
[2017-08-20] MEDS ORDERED: VANCOMYCIN 1 GRAM (PRE-DOCKED) 1,000 MG/250 ML BAG IVPB ONE ×2 (18:29→18:43)
[2017-08-20 19:25] VITALS: BP 116/60; PULSE 85
--- NOTE | 2017-08-21 11:33 | EKG ---
Test Reason : Blood Pressure : / mmHG Vent. Rate : 080 BPM Atrial Rate : 080 BPM P-R Int : 146 ms QRS Dur : 076 ms QT Int : 364 ms P-R-T Axes : 067 034 052 degrees QTc Int : 419 ms NORMAL SINUS RHYTHM NORMAL ECG WHEN COMPARED WITH ECG OF 15-DEC-2016 16:03, NO SIGNIFICANT CHANGE WAS FOUND Confirmed by AILIN MENDOZA MD ([id number]) on 08/21/2017 11:33:39 AM Referred By: Confirmed By:AILIN MENDOZA MD
== END 2017-08-20 19:51 | disposition short-term general hospital (02) ==
LOC: JER 12:45
PROC: 3E03329 Introduction of Other Anti-infective into Peripheral Vein, Percutaneous Approach (ICD-10-PCS; principal; 2017-08-20)
PROC: 3E033NZ Introduction of Analgesics, Hypnotics, Sedatives into Peripheral Vein, Percutaneous Approach (ICD-10-PCS; 2017-08-20)
DX: L03.116 Cellulitis of left lower limb (principal); Z96.652 Presence of left artificial knee joint; Z98.890 Other specified postprocedural states; I10 Essential (primary) hypertension; J44.9 Chronic obstructive pulmonary disease, unspecified; F41.9 Anxiety disorder, unspecified; M10.9 Gout, unspecified; G47.00 Insomnia, unspecified
CPT/HCPCS: 36415; 71010-TC; 73560-TC-LT; 80053; 82550; 82803; 83605; 84484; 85025; 85610; 85730; 86850; 86900; 86901; 87040; 93005; 93010; 93971-TC; 99284-25

== ENCOUNTER 2018-10-27 11:11 | Emergency (ER) | payer OTHER ==
[2018-10-27 11:32] VITALS: BP 107/71; PULSE 68; TEMP 98.4; BMI 36.0
--- NOTE | 2018-10-27 11:53 | PDOC ---
History of Present Illness - General Chief Complaint: Eye Problem Stated Complaint: LT EYE SWOLLEN Time Seen by Provider: 10/27/18 11:36 History Source: Patient - History of Present Illness Severity: Yes: moderate Past History - Past Medical History Allergies/Adverse Reactions: Allergies Allergy/AdvReac Type Severity Reaction Status Date / Time No Known Allergies Allergy Unverified 08/20/17 13:30 Home Medications: Ambulatory Orders Albuterol Sulfate Inhaler - [Ventolin Hfa Inhaler -] 1 - 2 inh PO Q4H 12/15/16 Atorvastatin Ca [Lipitor] 20 mg PO HS 12/15/16 Gabapentin [Neurontin] 300 mg PO TID 12/15/16 Omeprazole 40 mg PO BID 12/15/16 Tiotropium [place] [Spiriva] 18 mcg IH DAILY 12/15/16 Aspirin [ASA -] 325 mg PO DAILY 08/20/17 Docusate Sodium [Colace -] 300 mg PO HS 08/20/17 Enalapril Maleate [Vasotec] 20 mg PO DAILY 08/20/17 HYDROmorphone [Dilaudid -] 4 mg PO Q4H PRN 08/20/17 Zolpidem Tartrate [Ambien] 10 mg PO HS 08/20/17 Amox-Tr/K Cl [Augmentin - 875Mg Tablet] 1 tab PO BID #14 tablet 10/27/18 Sulfamethoxazole/Trimethoprim [Bactrim Ds -] 1 tab PO BID #14 tablet 10/27/18 Anemia: No Asthma: No Cancer: No Cardiac Disorders: No CVA: No COPD: Yes CHF: No Dementia: No Diabetes: No GI Disorders: No Disorders: No HTN: Yes Hypercholesterolemia: Yes Kidney Stones: No Liver Disease: No Seizures: No Thyroid Disease: No - Surgical History Orthopedic Surgery: Yes (rt. foot 2014) - Reproductive History PID: No - Suicide/Smoking/Psychosocial Hx Smoking History: Current every day smoker Have you smoked in the past 12 months: Yes Number of Cigarettes Smoked Daily: 20 Information on smoking cessation initiated: No 'Breaking Loose' booklet given: 12/15/16 Hx Alcohol Use: No Drug/Substance Use Hx: No Substance Use Type: Heroin, Opiates Hx Substance Use Treatment: Yes (OTP) Review of Systems - Review of Systems Constitutional: No: Chills, Fever, Malaise *Physical Exam - Vital Signs Last Vital Signs Temp Pulse Resp BP Pulse Ox 98.4 F 68 18 107/71 99 10/27/18 11:30 10/27/18 11:30 10/27/18 11:30 10/27/18 11:30 10/27/18 11:30 - Physical Exam General Appearance: Yes: Appropriately Dressed. No: Apparent Distress HEENT: positive: Normal Voice, Other (~3x1 cm area of erythema/swelling/ttp to inferior periorbital area of L eye, no induratiuon/fluctuance) Neck: positive: Supple. negative: Lymphadenopathy (R), Lymphadenopathy (L) Respiratory/Chest: negative: Respiratory Distress Integumentary: positive: Dry, Warm Neurologic: positive: Fully Oriented, Alert, Normal Mood/Affect Moderate Sedation - Procedure Monitoring Vital Signs: Procedure Monitoring Vital Signs Temperature 98.4 F 10/27/18 11:30 Pulse Rate 68 10/27/18 11:30 Respiratory Rate 18 10/27/18 11:30 Blood Pressure 107/71 10/27/18 11:30 O2 Sat by Pulse Oximetry (%) 99 10/27/18 11:30 Medical Decision Making - Medical Decision Making 10/27/18 11:57 62-year-old female, history of NIDDM, HTN, here with pain, redness and swelling under left eye. Patient states she awoke 3 days ago with minimal redness under her left eye that has since worsened. No itching. No pain inside eye, pain with eye movement or visual changes. Denies any fever or chills. No recent trauma, bite, URI or other obvious inciting factors. No history of same. See exam Preseptal cellulitis No e/o orbital involvement -dc w/ abx as d/w ED attg -wound check in 2 days *DC/Admit/Observation/Transfer Diagnosis at time of Disposition: Preseptal cellulitis of left eye - Discharge Dispostion Disposition: HOME Condition at time of disposition: Stable - Prescriptions Prescriptions: Amox-Tr/K Cl [Augmentin - 875Mg Tablet] 1 tab PO BID #14 tablet Sulfamethoxazole/Trimethoprim [Bactrim Ds -] 1 tab PO BID #14 tablet - Referrals - Patient Instructions Printed Discharge Instructions: Cellulitis Additional Instructions: You were treated for an infection around your left eye. It is very important that you take both antibiotics as prescribed. We also want you to return to the ER in 2 days for reassessment. In the meantime, if system if symptoms worsen despite antibiotics, return to ER immediately - Post Discharge Activity
== END 2018-10-27 12:08 | disposition home or self-care (01) ==
LOC: JER 11:11
DX: L03.213 Periorbital cellulitis (principal); I10 Essential (primary) hypertension; E11.9 Type 2 diabetes mellitus without complications; Z79.84 Long term (current) use of oral hypoglycemic drugs
CPT/HCPCS: 99281-25

== ENCOUNTER 2020-09-29 05:17 | Emergency (ER) | payer OTHER ==
[2020-09-29 05:29] VITALS: BMI 40.2
[2020-09-29] MEDS ORDERED: cloNIDine HCL 0.1 MG TABLET PO ONE (05:53)
[2020-09-29] MEDS ORDERED: cloNIDine HCL 0.1 MG TABLET ONE (06:04)
[2020-09-29 06:33] LABS: BASO % 0.3 % (0-2.0); EOS % 1.4 % (0-4.5); HEMATOCRIT 47.8 % (32.4-45.2); HEMOGLOBIN 15.5 GM/dL (10.7-15.3); LYMPH % 17.5 % (8-40); MCH 29.9 pg (25.7-33.7); MCHC 32.5 g/dl (32.0-36.0); MEAN CELL VOLUME 92.1 fl (80-96); MEAN PLT VOLUME 9.3 fl (7.5-11.1); MONO % 4.3 % (3.8-10.2); NEUT % 76.5 % (42.8-82.8); PLATELET COUNT 131 K/MM3 (134-434); RBC 5.19 M/mm3 (3.60-5.2); RDW 14.7 % (11.6-15.6); WHITE BLOOD COUNT 8.5 K/mm3 (4.0-10.0)
[2020-09-29 06:37] LABS: POTASSIUM 4.2 mmol/L (3.5-5.1); SODIUM 141 mmol/L (136-145)
[2020-09-29 06:39] LABS: CALCIUM 8.9 mg/dL (8.5-10.1)
[2020-09-29 06:40] LABS: ALBUMIN 3.4 g/dl (3.4-5.0); BLOOD UREA NITROGEN 17.3 mg/dL (7-18); CO2 28 mmol/L (21-32); GLUCOSE,RANDOM 119 mg/dL (74-106); MAGNESIUM 2.1 mg/dL (1.8-2.4)
[2020-09-29 06:43] LABS: CREATININE 1.1 mg/dL (0.55-1.3); SGOT/AST 20 U/L (15-37); SGPT/ALT 19 U/L (13-61)
[2020-09-29 06:45] LABS: TOT PROT 6.3 g/dl (6.4-8.2)
[2020-09-29 06:46] LABS: ALK PHOS 89 U/L (45-117)
[2020-09-29 07:02] LABS: ANION GAP 5 MMOL/L (8-16); BILIRUBIN,TOTAL 0.3 mg/dL (0.2-1); CHLORIDE 108 mmol/L (98-107)
[2020-09-29 07:23] VITALS: BP 125/84; PULSE 58
== END 2020-09-29 07:23 | disposition home or self-care (01) ==
LOC: JER 05:17
DX: R11.10 Vomiting, unspecified (principal); F11.23 Opioid dependence with withdrawal
CPT/HCPCS: 36415; 80053; 83735; 84100; 84484; 85025; 93005; 93010; 99284-25; J0735